=== PATIENT | male | born 1945 | race Two or more races ===

== ENCOUNTER 2019-04-03 15:22 | Emergency (ER) | payer MEDICAID ==
[~2019-04-03] VITALS: Ht 172.7 cm; Wt 77.1 kg
[2019-04-03 15:22] VITALS: BP 154/90
--- NOTE | 2019-04-03 15:25 | NUR ---
ED Nurse Note: Patient biba from a long term c/o right shoulder pain that he states mckeon been an on going issue for the past 5 days. patient rates his pain a 7/10 pain. patient is able to move arm around. denies any chest pain.
[2019-04-03 16:35] LABS: EOSINOPHILS % (AUTO) 1.8 % (0.0-3.0); HEMOGLOBIN 14.8 G/DL (14.2-18.0); LYMPHOCYTES % (AUTO) 17.5 % (20.0-45.0); MEAN CORPUSCULAR VOLUME 91 FL (80-99); MONOCYTES % (AUTO) 8.4 % (1.0-10.0); NEUTROPHILS % (AUTO) 71.3 % (45.0-75.0); PLATELET COUNT 125 K/UL (150-450); RED BLOOD COUNT 4.75 M/UL (4.70-6.10); WHITE BLOOD COUNT 5.7 K/UL (4.8-10.8)
--- NOTE | 2019-04-03 16:41 | Diagnostic Imaging Report ---
Indication: Dyspnea Comparison: None A single view chest radiograph was obtained. Findings: Cardiomediastinal appearance is within normal limits for age. The lungs are clear. Pulmonary vascularity is appropriate. The diaphragmatic contour is smooth and costophrenic angles are sharp. No pleural effusions are identified. The bones are unremarkable. Impression: No acute findings
[2019-04-03 16:47] LABS: ANION GAP 10 mmol/L (5-15); BLOOD UREA NITROGEN 16 mg/dL (7-18); CALCIUM 9.7 MG/DL (8.5-10.1); CARBON DIOXIDE 26 MMOL/L (21-32); CHLORIDE 105 MMOL/L (98-107); CREATININE 1.4 MG/DL (0.55-1.30); POTASSIUM 4.5 MMOL/L (3.5-5.1); SODIUM 140 MMOL/L (136-145)
[2019-04-03 16:53] LABS: ALANINE AMINOTRANSFERASE 23 U/L (12-78); ALBUMIN 3.8 G/DL (3.4-5.0); ALKALINE PHOSPHATASE 60 U/L (46-116); ASPARTATE AMINO TRANSFERASE 22 U/L (15-37); BILIRUBIN,TOTAL 0.7 MG/DL (0.2-1.0); CREATINE KINASE 299 U/L (26-308)
[2019-04-03] MEDS ORDERED: VITAMIN B122500 MCG PO (17:02)
[2019-04-03] MEDS ORDERED: FLOMAX0.4 MG ORAL (17:02)
[2019-04-03] MEDS ORDERED: ATORVASTATIN CA40 MG ORAL (17:02)
[2019-04-03] MEDS ORDERED: AMLODIPINE BESYL5 MG ORAL (17:02)
[2019-04-03] MEDS ORDERED: SERTRALINE HCL25 MG ORAL (17:02)
[2019-04-03] MEDS ORDERED: ZYRTEC10 MG ORAL (17:02)
[2019-04-03] MEDS ORDERED: FOLIC ACID1 MG ORAL (17:02)
[2019-04-03] MEDS ORDERED: Ketorolac 30mg Inj IV ONE (17:15)
--- NOTE | 2019-04-03 17:25 | NUR ---
ED Nurse Note: patient sleeping calmly in bed
[2019-04-03] MEDS ORDERED: Isovue-370 150ml vial INJ PRN (17:30)
--- NOTE | 2019-04-03 18:06 | Emergency Room Report ---
History of Present Illness General Chief Complaint: Pain Source: Patient (Maddie Xiong) Present Illness HPI 73 YO Male presents to the ED c/o 8/10 in severity right sided/ lateral CP x 1 week which is exacerbated with breathing. Denies left sided pain or tightness. Pt. reports pain also mildly exacerbated with movement. Denies trauma, fall or strenuous activities. Denies lifting any heavy objects. Reports Pmhx is HTN and BPH. Denies Cough or recent URI. Denies paresthesias or palpitations. Denies pain with movement of the right arm/shoulder. Denies LE edema. Denies bruises or rashes. (Maddie Xiong) Allergies: Coded Allergies: No Known Allergies (Unverified , 04/03/19) Patient History Past Medical History: see triage record Past Surgical History: none Pertinent Family History: none Reviewed Nursing Documentation: PMH: Agreed; PSxH: Agreed (Maddie Xiong) Nursing Documentation-PMH Past Medical History: No History, Except For Hx Hypertension: Yes (Maddie Xiong) Review of Systems All Other Systems: negative except mentioned in HPI (Maddie Xiong) Physical Exam Vital Signs Date Time Temp Pulse Resp B/P (MAP) Pulse Ox O2 Delivery O2 Flow Rate FiO2 04/03/19 15:18 98.2 80 16 154/90 (111) 96 Room Air Sp02 EP Interpretation: reviewed, normal General Appearance: alert, GCS 15, non-toxic, mild distress Head: normocephalic, atraumatic Eyes: bilateral eye normal inspection, bilateral eye PERRL ENT: hearing grossly normal, normal voice Neck: full range of motion Respiratory: lungs clear, normal breath sounds, no rhonchi, no respiratory distress, no accessory muscle use, no wheezing, speaking full sentences, other - mild reproducible ttp to the lateral right side of the chest under the right axilla down to approx 6th rib. no flail chest, no bruises, mild ST swelling of the right anterior and lateral chest. Cardiovascular #1: regular rate, rhythm, no edema, normal capillary refill Cardiovascular #2: 2+ radial (R) Gastrointestinal: non tender, soft, non-distended, no guarding Musculoskeletal: back normal, gait/station normal, normal range of motion, non- tender - other than lateral right chest mild ttp. no TTP to the right shoulder FROM. no obvious deformity. Neurologic: alert, oriented x3, responsive, motor strength/tone normal, sensory intact, normal gait, speech normal, grossly normal Psychiatric: judgement/insight normal Skin: no rash, normal color, well hydrated Lymphatic: no adenopathy (Maddie Xiong) Medical Decision Making PA Attestation Dr. Morales is my supervising Physician whom patient management has been discussed with. (Maddie Xiong) Medicare Attestation The history of Eladio Adam has been reviewed and management options for him have been examined and discussed by William Morales. I have personally examined and interviewed the patient. (William Morales MD) Diagnostic Impression: Primary Impression: Nonspecific chest pain Additional Impression: Pulmonary nodule, left ER Course 73 YO Male presents to the ED c/o 8/10 in severity right sided/ lateral CP x 1 week which is exacerbated with breathing. Denies left sided pain or tightness. Pt. reports pain also mildly exacerbated with movement. Denies trauma, fall or strenuous activities. Denies lifting any heavy objects. Reports Pmhx is HTN and BPH. Denies Cough or recent URI. Denies paresthesias or palpitations. Denies pain with movement of the right arm/shoulder. Denies LE edema. Denies bruises or rashes. Ddx considered but are not limited to GA, pneumonia, contusion, costochondritis , PE, ACS, Shoulder strain, Chest wall contusion. aortic dissection. Vital signs: are WNL, pt. is afebrile H&PE are most consistent with nonspecific CP in older male with Dyspnea r/o cardiac and pulmonary etiology ORDERS: - EK NSR no acute ST segment changes or evidence of ischemia, no S1 Q3T3 -CBC: WNL -CMP: WNL -Troponin: 0.00 -D-Dimer: 1.07 (elevated) CXR: Unremarkable -CTA Chest: negative for PE. -incidental finding of left pulmonary nodule- this was d/w [place]. in [place]. Instructed pt. to follow up with PCP for repeat imaging studies to monitor the nodule as potential to be cancerous. ED INTERVENTIONS: - Toradol IV upon reassessment, pt. reports pain has reduced to 3/10 in severity. -I do not identify an emergent condition at this time. With current presentation , pt. is stable for close outpatient follow up and conservative treatment. D/ w pt. to return promptly to ED with worsening or new symptoms.- Pt. verbalizes' understanding and agreement with proposed treatment plan. DISCHARGE: At this time pt. is stable for d/c to home. Will provide printed patient care instructions, and any necessary prescriptions. Care plan and follow up instructions have been discussed with the patient prior to discharge. Labs Test 04/03/19 16:15 White Blood Count 5.7 K/UL (4.8-10.8) Red Blood Count 4.75 M/UL (4.70-6.10) Hemoglobin 14.8 G/DL (14.2-18.0) Hematocrit 43.0 % (42.0-52.0) Mean Corpuscular Volume 91 FL (80-99) Mean Corpuscular Hemoglobin 31.2 PG (27.0-31.0) Mean Corpuscular Hemoglobin Concent 34.4 G/DL (32.0-36.0) Red Cell Distribution Width 11.0 % (11.6-14.8) Platelet Count 125 K/UL (150-450) Mean Platelet Volume 6.2 FL (6.5-10.1) Neutrophils (%) (Auto) 71.3 % (45.0-75.0) Lymphocytes (%) (Auto) 17.5 % (20.0-45.0) Monocytes (%) (Auto) 8.4 % (1.0-10.0) Eosinophils (%) (Auto) 1.8 % (0.0-3.0) Basophils (%) (Auto) 1.0 % (0.0-2.0) D-Dimer 1.07 mg/L FEU (0.00-0.49) Sodium Level 140 MMOL/L (136-145) Potassium Level 4.5 MMOL/L (3.5-5.1) Chloride Level 105 MMOL/L (98-107) Carbon Dioxide Level 26 MMOL/L (21-32) Anion Gap 10 mmol/L (5-15) Blood Urea Nitrogen 16 mg/dL (7-18) Creatinine 1.4 MG/DL (0.55-1.30) Estimat Glomerular Filtration Rate mL/min (>60) Glucose Level 102 MG/DL (74-106) Calcium Level 9.7 MG/DL (8.5-10.1) Total Bilirubin 0.7 MG/DL (0.2-1.0) Aspartate Amino Transf (AST/SGOT) 22 U/L (15-37) Alanine Aminotransferase (ALT/SGPT) 23 U/L (12-78) Alkaline Phosphatase 60 U/L (46-116) Total Creatine Kinase 299 U/L (26-308) Troponin I 0.000 ng/mL (0.000-0.056) Total Protein 7.6 G/DL (6.4-8.2) Albumin 3.8 G/DL (3.4-5.0) Globulin 3.8 g/dL Albumin/Globulin Ratio 1.0 (1.0-2.7) (Maddie Xiong) EKG Diagnostic Results EP Interpretation: Dr. Morales Rate: normal - 66 bpm Rhythm: NSR ST Segments: no acute changes ASA given to the pt in ED: No PA Scribe Text This Interpretation was scribed by DARRYL Xiong. (Maddie Xiong) Chest X-Ray Diagnostic Results Chest X-Ray Diagnostic Results : Chest X-Ray Ordered: Yes # of Views/Limited/Complete: 1 View Indication: Chest Pain EP Interpretation: Yes PA Xray: Interpretation reviewed, by supervising MD, and agrees with findings. Interpretation: no consolidation, no effusion, no pneumothorax, no acute cardiopulmonary disease Impression: No acute disease Electronically Signed by: Maddie Xiong PA-C (Maddie Xiong) CT/MRI/US Diagnostic Results CT/MRI/US Diagnostic Results : Imaging Test Ordered: CTA Chest w. contrast Impression " negative for PE. -incidental finding of left pulmonary nodule-" per official radiology report- Please see report for specific details. (Maddie Xiong) Last Vital Signs Date Time Temp Pulse Resp B/P (MAP) Pulse Ox O2 Delivery O2 Flow Rate FiO2 04/03/19 15:22 98.2 83 16 154/90 96 Room Air Status: improved (Maddie Xiong) Disposition: HOME, SELF-CARE Condition: Stable Scripts Acetaminophen* (TYLENOL EXTRA STRENGTH*) 500 Mg Tablet 500 MG ORAL Q6H, #20 TAB 0 Refills Prov: Maddie Xiong 04/03/19 Referrals: NON PHYSICIAN (PCP) Patient Instructions: Nonspecific Chest Pain, Pulmonary Nodule, [id number] Additional Instructions: Take medications as directed. Follow up with a Primary Care Provider in 3-5 days, even if your symptoms have resolved. --Please review list of primary care clinics, if you do not already have a primary care provider Return sooner to ED if new symptoms occur, or current symptoms become worse. - Please note that this Emergency Department Report was dictated using [employer] intern technology software, occasionally this can lead to erroneous entry secondary to interpretation by the dictation equipment. Maddie Xiong Apr 03, 2019 18:06 William Morales MD Apr 06, 2019 06:46
--- NOTE | 2019-04-03 18:52 | Diagnostic Imaging Report ---
EXAM: CT Chest With Intravenous Contrast CLINICAL HISTORY: PAIN TECHNIQUE: Axial computed tomography images of the chest with intravenous contrast during the arterial phase of enhancement. CTDI is 25 mGy and DLP is 792 mGy-cm. One or more of the following dose reduction techniques were used: automated exposure control, adjustment of the mA and/or kV according to patient size, use of iterative reconstruction technique. Coronal and sagittal reformatted images were created and reviewed. Axial reformatted images were created and reviewed. COMPARISON: No relevant prior studies available. FINDINGS: Limitations: Limited evaluation of abdominal structures due to motion artifact. Pulmonary arteries: Distal pulmonary arteries are not opacified adequately, no large or central pulmonary embolism seen.. Aorta: No acute findings. No thoracic aortic aneurysm. Inferior vena cava: Contrast reflux into the IVC suggest possible right heart strain. Lungs: Spiculated 0.7 cm left upper lobe nodule axial image 19. Recommend correlation with prior studies if available to evaluate stability over time. If none available, recommend follow-up unenhanced CT chest in 6 months. Pleural space: Unremarkable. No significant effusion. No pneumothorax. Heart: Study somewhat limited due to phase of contrast timing issues, likely related to suboptimal forward cardiac out. Bones/joints: No acute fracture. No dislocation. Soft tissues: Unremarkable. Lymph nodes: Unremarkable. No enlarged lymph nodes. Other findings: Multilevel ASVD. IMPRESSION: 1. Study somewhat limited due to phase of contrast timing issues, likely related to suboptimal forward cardiac out. 2. Contrast reflux into the IVC suggest possible right heart strain. 3. Spiculated 0.7 cm left upper lobe nodule axial image 19. Recommend correlation with prior studies if available to evaluate stability over time. If none available, recommend follow-up unenhanced CT chest in 6 months. 4. Limited evaluation of abdominal structures due to motion artifact.
[2019-04-03] MEDS ORDERED: TYLENOL EXTRA500 MG ORAL (19:18)
[2019-04-03 19:25] VITALS: BP 137/80
--- NOTE | 2019-04-03 19:25 | NUR ---
ER DISCHARGE NOTE: Patient is cleared to be discharged per ERMD, pt is aox4, on room air, with stable vital signs. pt was given dc and prescription instructions, pt was able to verbalize understanding, pt id band and iv site removed without complications. pt is able to ambulate with steady gait. pt took all belongings.
== END 2019-04-03 19:25 | disposition home or self-care (01) ==
LOC: EDBD 15:22 → EMR 16:28
DX: R07.9 Chest pain, unspecified (principal); R91.1 Solitary pulmonary nodule; I10 Essential (primary) hypertension
CPT/HCPCS: 36415; 71045; 71275; 80053; 82550; 84484; 85025; 85379; 96374; 99284; J1885; Q9967